=== PATIENT | female | born 1995 | race Caucasian/White ===

== ENCOUNTER 2016-11-08 20:41 | Inpatient (IN) ==
[2016-11-08] MEDS ORDERED: ONDANSETRON 4 MG/2 ML VIAL IV PRN (21:04)
[2016-11-08 21:19] LABS: Basophils % 0.2 % (0.0-0.8); Eosinophils # 0.1 10*3/uL (0.0-0.87); Eosinophils % 0.6 % (0.00-10.9); Hematocrit 35.7 VOL% (35.7-47.0); Hemoglobin 11.3 GM/DL (12.0-16.0); Immature Granulocytes Absolute 0.14 #; Mean Corpuscular HGB Conc 31.7 GM/DL (32-36); Mean Corpuscular Hemoglobin 25 PG (27-34); Mean Corpuscular Volume 78.5 FL (87-102); Mean Platelet Volume 12.5 FL (9.6-12.0); Monocytes % 6.8 % (1.7-12.7); Neutrophils # 10.1 10*3/uL (1.4-7.4); Neutrophils % 70.4 % (38.7-73.9); Platelet Count 238 10*3/uL (130-400); Red Blood Count 4.55 10*6/uL (3.8-5.5); Red Cell Distribution Width 14.5 % (9.3-17.3); White Blood Count 14.4 10*3/uL (4.5-13.71)
[2016-11-08 21:50] LABS: Alanine Aminotransferase 14 U/L (13-56); Albumin 3.2 G/DL (3.4-5.0); Alkaline Phosphatase 147 U/L (45-117); Aspartate Amino Transferase 16 U/L (0-37); Bilirubin,Total < 0.39 MG/DL (0.2-1.0); Blood Urea Nitrogen 6 MG/DL (7-18); Calcium 8.7 MG/DL (8.5-10.1); Glucose 72 MG/DL (74-106); Osmolality,Calculated 273.5 MOS/KG (273-304); Potassium 3.7 MMOL/L (3.5-5.1); Sodium 139 MMOL/L (136-145); Total Protein 7.2 G/DL (6.4-8.3)
[2016-11-09] MEDS: LACTATED RINGERS 1,000 ML IV SCH ×3 (00:01→13:55)
[2016-11-09] MEDS: MEPERIDINE 50 MG/1 ML VIAL IV PRN ×2 (05:35→08:17)
--- NOTE | 2016-11-09 06:50 | OB/GYN History & Physical ---
History of Present Illness Chief complaint: at 39 weeks admitted for elective induction History of present illness: Ms. Mcdonnell is a 21 year old female 1 para 0 at 39 weeks assessment gestational age who presents for elective induction. Estimated weight 7 lbs. 12 oz. ultrasound Vertex normal DYLAN. Cervix noted be 1/50/-3 with bag water intact. Her group B strep status is negative. She is consequently admitted for Cytotec/Pitocin induction after the risks benefits and alternatives are explained patient in detail and informed consent was obtained Home Medications Medication Instructions Recorded Confirmed Type Multivitamin () [ 1 tablet PO DAILY 11/08/16 11/08/16 History Vitamin] Allergies Allergy/AdvReac Type Severity Reaction Status Date / Time codeine Allergy Severe ANAPHYLAXIS Verified 11/08/16 21:04 12 point system: reviewed and no additional remarkable complaints except as stated Medical,Surgical,& Family Hx - Medical History HEENT: History of: Eye Problem (wears contacts) Reproductive: No history of: Ectopic , Complication - Surgical History Abdominal Surgeries: Patient denies: Abdominal Surgery Reproductive Surgeries: Patient denies;: Section - Family History Family History: Reports;: Family Cancer (mgf (lymphoma)), Family Heart Disease ( mgf (x2 heart attack)), Family Hematology (cousin hemophylia) - Social History Smoking Status: Never smoker Frequency of Alcohol Use: None Type of Drug Use: None 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: Vital Signs Temp Pulse Resp BP 11/09/16 04:00 98.6 F 77 18 108/71 11/09/16 00:00 98.7 F 120 H 20 136/83 11/08/16 21:20 99.4 F 108 H 20 124/83 General appearance: normal weight, no acute distress - Head Head exam: Present: normal inspection, normocephalic, atraumatic - Eye Eye exam: Present: EOMI Pupils: Present: JAMES - Neck Neck exam: Present: normal inspection - Respiratory Respiratory exam: Present: clear to auscultation bilaterally - Breast Breasts: as per HPI Menstruation: as per HPI - Cardiovascular Cardiovascular exam: Present: regular rate and rhythm - GI/Abdominal GI/Abdominal exam: Present: normal bowel sounds - Extremities Exam Extremities exam: Present: normal inspection, normal capillary refill - Back Exam Back exam: Present: normal inspection - Neurological Exam Neurological exam: Present: alert, oriented X3 - Psychiatric Psychiatric exam: Present: normal affect, normal mood Assessment and Plan (1) with 39 completed weeks gestation Status: Acute Current Visit: Yes (2) Elective induction of labor planned Status: Acute Current Visit: Yes Results - Labs CBC & BMP: 11/08/16 21:08 11/08/16 21:08
[2016-11-09] MEDS ORDERED: OXYTOCIN/LR 20 UNIT/1,000 ML BAG IV SCH (08:30)
[2016-11-09] MEDS ORDERED: fentaNYL 2 MCG/ROPIV 0.2% EPID 150 ML EPIDURAL SCH (09:22)
[2016-11-09] MEDS ORDERED: FAMOTIDINE 20 MG/2 ML VIAL IV ONE (09:22)
[2016-11-09] MEDS ORDERED: ePHEDrine 50 MG/ML AMP IV PRN (09:22)
[2016-11-09] MEDS ORDERED: CITRIC ACID/SODIUM CITRATE 30 ML UDCUP PO ONE (09:22)
[2016-11-09] MEDS ORDERED: hydrOXYzine HCL 25 MG/1 ML VIAL IM PRN (09:22)
[2016-11-09] MEDS ORDERED: diphenhydrAMINE 50 MG/1 ML VIAL IV PRN (09:22)
[2016-11-09] MEDS ORDERED: PROMETHAZINE 25 MG/1 ML VIAL IM ONE (09:22)
[2016-11-09 11:16] LABS: Apearance,Urine CLEAR (Clear); Bacteria,Urine Occasional /HPF (Few); Bilirubin,Urine Negative (Negative); Blood, Urine Small mg/dL (Negative); Glucose,Urine (UA) Negative (Negative); Ketones,Urine Negative (Negative); Mucus,Urine Few /LPF (Occasional); Nitrite,Urine Negative (Negative); Protein,Urine Negative; RBC,Urine 20 /HPF (0-4); Squamous Epithelial Cell,Urine Occasional /HPF (0-10); Urine Color Yellow (Yellow); Urine Specific Gravity 1.014 (1.001-1.035); Urine Urobilinogen < 2.0 EU/DL (0.2-1.0); WBC,Urine 1 /HPF (0-6)
[2016-11-09] MEDS ORDERED: LIDOCAINE 1% 50 ML VIAL ONE (14:59)
[2016-11-09] MEDS ORDERED: BUTORPHANOL 1 MG/ML VIAL ONE (14:59)
[2016-11-09] MEDS ORDERED: METHYLERGONOVINE 0.2 MG/1 ML AMP ONE (15:00)
[2016-11-09] MEDS ORDERED: RHO(D) IMMUNE GLOBULIN 300 MCG SYRINGE IM ONE (15:16)
[2016-11-09] MEDS ORDERED: ONDANSETRON 4 MG/2 ML VIAL IV PRN (15:16)
[2016-11-09] MEDS ORDERED: oxyCODONE/ACETAMINOPHEN 5-325 MG TABLET PO PRN (15:16)
[2016-11-09] MEDS ORDERED: DIPH/TET/ACEL PERT BOOSTER VACCINE 0.5 ML VIAL IM ONE (15:16)
[2016-11-09] MEDS ORDERED: WITCH HAZEL PADS 100/JAR TOP PRN (15:16)
[2016-11-09] MEDS ORDERED: HYDROCORTISONE 2.5% RECTAL CREAM 30 GM TUBE TOP PRN (15:16)
[2016-11-09] MEDS ORDERED: LANOLIN 50% CREAM 0.3 OZ TUBE TOP PRN (15:16)
[2016-11-09] MEDS ORDERED: MEASLES/MUMPS/RUBELLA VACCINE 0.5 ML VIAL SUBCUT ONE (15:16)
[2016-11-09] MEDS ORDERED: OXYTOCIN/LR 20 UNIT/1,000 ML BAG IV ONE (15:16)
[2016-11-09] MEDS ORDERED: BISACODYL 10 MG SUPP RECTAL PRN (15:16)
[2016-11-09] MEDS ORDERED: BENZOCAINE 20%/MENTHOL 0.5% SPRAY 56 GM CAN TOP PRN (15:16)
[2016-11-09] MEDS ORDERED: ACETAMINOPHEN 325 MG TABLET PO PRN (15:16)
--- NOTE | 2016-11-09 15:16 | OB/GYN Progress Note ---
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 Gonzales dictating vaginal delivery And in LDR environment under sterile conditions, the patient progressed to completely dilated. She was allowed to push and under [epidural] anesthesia had a normal spontaneous vaginal delivery of a live born female infant 6 lbs. 2 oz. [Apgars 9 and 9] over a [second-degree midline episiotomy]. The infant's nose and oropharynx were bulb and DeLee suctioned, and the infant had spontaneous cry after delivery. The cord was doubly clamped and cut and the infant was handed over to the pediatric team for care. Cord blood was obtained the placenta delivered spontaneously intact and IV Pitocin was done. There were no cervical tears. Was a right periurethral tears. With 3-0 Monocryl suture in a running fashion under epidural anesthesia and the midline episiotomy was repaired with 2-0 Monocryl suture in usual fashion under epidural anesthesia. The bladder was emptied prior to delivery. Estimated blood loss was 250 mL. There were no complications. The bladder was emptied using a catheter prior to delivery. All sponge needle and instrument counts were correct 3 at the end of the delivery. 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
[2016-11-09] MEDS: oxyCODONE/ACETAMINOPHEN 5-325 MG TABLET PO PRN ×2 (19:35→23:15)
[2016-11-09] MEDS: DOCUSATE SODIUM 100 MG CAPSULE PO SCH (21:27)
[2016-11-10] MEDS: oxyCODONE/ACETAMINOPHEN 5-325 MG TABLET PO PRN ×4 (03:40→13:52)
[2016-11-10 06:12] LABS: Basophils % 0.2 % (0.0-0.8); Eosinophils # 0.1 10*3/uL (0.0-0.87); Eosinophils % 0.8 % (0.00-10.9); Hematocrit 30.1 VOL% (35.7-47.0); Hemoglobin 9.5 GM/DL (12.0-16.0); Immature Granulocytes % 0.8 %; Lymphocytes # 2.3 10*3/uL (1.4-4.0); Lymphocytes % 17.5 % (21.3-54.2); Mean Corpuscular HGB Conc 31.6 GM/DL (32-36); Mean Corpuscular Hemoglobin 24 PG (27-34); Mean Platelet Volume 12.5 FL (9.6-12.0); Monocytes % 7.8 % (1.7-12.7); Neutrophils # 9.5 10*3/uL (1.4-7.4); Neutrophils % 72.9 % (38.7-73.9); Platelet Count 146 10*3/uL (130-400); Red Blood Count 3.91 10*6/uL (3.8-5.5); Red Cell Distribution Width 14.7 % (9.3-17.3)
[2016-11-10] MEDS: IBUPROFEN 800 MG TABLET PO PRN ×3 (07:20→20:59)
--- NOTE | 2016-11-10 07:58 | OB/GYN Progress Note ---
Assessment and Plan (1) with 39 completed weeks gestation Status: Acute Current Visit: Yes (2) Elective induction of labor planned Status: Acute Current Visit: Yes CLINICAL FACULTY - PN: Subj Interval history: Patient is doing well she is eating ambulating and voiding She is afebrile and her vital signs are stable Her fundus is firm and contracted She has decreased lochia Assessment #1 day #1 doing well Plan continue present management with expected DC tomorrow Exam CLINICAL FACULTY - Constitutional Vitals: Vital Signs Temp Pulse Resp BP Pulse Ox 11/10/16 07:29 97.6 F 83 18 94/61 98 11/10/16 03:40 98.5 F 82 18 99/72 99 11/10/16 02:00 18 11/09/16 23:15 97.5 F L 68 20 97/60 99 11/09/16 19:35 98.0 F 91 H 20 111/80 99 11/09/16 18:30 98.3 F 77 20 104/73 100 Results - Labs CBC & BMP: 11/10/16 05:49 11/08/16 21:08
[2016-11-10] MEDS: DOCUSATE SODIUM 100 MG CAPSULE PO SCH ×2 (09:11→20:59)
[2016-11-10] MEDS: MULTIVITAMIN (PRENATAL) TABLET PO SCH (09:11)
[2016-11-11] MEDS: oxyCODONE/ACETAMINOPHEN 5-325 MG TABLET PO PRN (05:16)
[2016-11-11] MEDS: IBUPROFEN 800 MG TABLET PO PRN (05:16)
--- NOTE | 2016-11-11 07:17 | Discharge Summary ---
Hospital Course - Hospital Course Hospital Course: the patient did well. She had quick return of bowel bladder function. She remained afebrile and normotensive throughout her hospitalization. She is counseled discharged on day #2 on a regular diet Diagnosis - Discharge Diagnosis (1) with 39 completed weeks gestation Status: Acute (2) Elective induction of labor planned Status: Acute Specialty Discharge - Follow Up or Referrals Discharge Plan - Discharge Data Disposition: Disch To Home/Self Care Condition at Discharge: Stable Discharge Diet: regular diet Activity: resume usual activities as tolerated, other (pelvic rest) Hygiene: may shower Weight Bearing at Discharge: full weight bearing Driving: no restrictions Contact your physician if you experience:: fever over 101, Difficulty voiding, Redness or swelling, Nausea/Vomiting, Shortness of breath, Bleeding, pain uncontrolled by pain medications - Discharge Medications New Acetamin/Codeine 300-30 Tab [Tylenol/Codeine #3] 1 tablet PO Q4H PRN #10 tablet PRN Reason: Abdominal Pain Discontinued Multivitamin () [ Vitamin] 1 tablet PO DAILY - Follow Up or Referral Follow Up: Erick Gonzales MD [Physician] - 2 Weeks - Forms/Instructions Instructions: Perineal Care (DC), Vaginal Delivery (DC), Bleeding (DC) Exam - Constitutional Vitals: Period Temp Pulse Resp BP Sys/Menard Pulse Ox Last 24 Hr 97.1 F-97.9 F 79-94 18-20 94-110/61-75 98-99 DS: Provider Date of admission: 11/08/16 21:08 Primary care physician: . No PCP Attending physician on admission: Gabi Teixeira Consults: 11/08/16 21:08 Consult to Anesthesiology [CONS] Routine Consulting Provider: Reason for Anesthesiology: Epidural Consult Comment: Epidural for pain managment 11/09/16 15:16 Consult to Early Childhood [CONS] Routine Consult Early Childhood: Breast Feeding Discharging clinician: Gabi Teixeira Expected date of discharge: 11/11/16
[2016-11-11 08:08] VITALS: BP 97/68
[2016-11-11] MEDS: DOCUSATE SODIUM 100 MG CAPSULE PO SCH (09:24)
[2016-11-11] MEDS: MULTIVITAMIN (PRENATAL) TABLET PO SCH (09:25)
== END 2016-11-11 11:55 | disposition home or self-care (01) | DRG 775 ==
LOC: N.LDOUT 20:41 → N.LD 20:47 → N.OB 11-09 18:32
PROVIDERS: ADMIT Specialist; ATTEND Specialist

== ENCOUNTER 2020-02-13 11:25 | Inpatient (IN) ==
[2020-02-13] MEDS ORDERED: ONDANSETRON 4 MG/2 ML VIAL IV PRN ×2 (12:05→15:34)
[2020-02-13] MEDS ORDERED: MEPERIDINE 50 MG/1 ML VIAL IV PRN (12:05)
[2020-02-13] MEDS ORDERED: hydrOXYzine HCL 25 MG/1 ML VIAL IM PRN (12:11)
[2020-02-13] MEDS ORDERED: FAMOTIDINE 20 MG/2 ML VIAL IV ONE (12:11)
[2020-02-13] MEDS ORDERED: diphenhydrAMINE 50 MG/1 ML VIAL IV PRN ×2 (12:11)
[2020-02-13] MEDS ORDERED: PROMETHAZINE 25 MG/1 ML VIAL IM ONE (12:11)
[2020-02-13] MEDS ORDERED: NALOXONE 0.4 MG/ML VIAL IV PRN (12:11)
[2020-02-13] MEDS ORDERED: CITRIC ACID/SODIUM CITRATE 30 ML UDCUP PO ONE (12:11)
[2020-02-13] MEDS ORDERED: LACTATED RINGERS 1,000 ML IV ONE (12:11)
[2020-02-13 12:24] LABS: Basophils % 0.3 % (0.0-0.8); Eosinophils # 0.1 10*3/uL (0.0-0.87); Eosinophils % 0.8 % (0.00-10.9); Hematocrit 40.9 VOL% (35.7-47.0); Hemoglobin 13.8 GM/DL (12.0-16.0); Immature Granulocytes % 0.8 %; Immature Granulocytes Absolute 0.08 #; Lymphocytes # 2.5 10*3/uL (1.4-4.0); Lymphocytes % 26.2 % (21.3-54.2); Mean Corpuscular HGB Conc 33.7 GM/DL (32-36); Mean Corpuscular Volume 90.3 FL (87-102); Mean Platelet Volume 12.1 FL (9.6-12.0); Monocytes % 7.2 % (1.7-12.7); Neutrophils % 64.7 % (38.7-73.9); Platelet Count 181 T/CUMM (130-400); Red Blood Count 4.53 MC/CUMM (3.8-5.5); Red Cell Distribution Width 13.1 % (9.3-17.3); White Blood Count 9.6 T/CUMM (4-12)
[2020-02-13] MEDS ORDERED: fentaNYL 2 MCG/ROPIV 0.2% EPID 100 ML EPIDURAL SCH (12:30)
[2020-02-13] MEDS ORDERED: OXYTOCIN/LR 20 UNIT/1,000 ML BAG IV SCH (12:30)
[2020-02-13] MEDS ORDERED: LACTATED RINGERS 1,000 ML IV SCH (12:30)
[2020-02-13 12:42] LABS: Alanine Aminotransferase 14 U/L (13-56); Alkaline Phosphatase 133 U/L (45-117); Aspartate Amino Transferase 14 U/L (0-37); Bilirubin,Total < 0.39 MG/DL (0.2-1.0); Blood Urea Nitrogen 7 MG/DL (7-18); Calcium 9.2 MG/DL (8.5-10.1); Estimated Glom Filtration Rate 130 ML/MIN; Glucose 70 MG/DL (74-106); Osmolality,Calculated 261.4 MOS/KG (273-304); Total Protein 7.5 G/DL (6.4-8.3)
[2020-02-13] MEDS: ePHEDrine 50 MG/ML AMP IV PRN ×2 (13:26→13:36)
[2020-02-13] MEDS ORDERED: miSOPROStoL 200 MCG TABLET ONE (15:10)
[2020-02-13] MEDS ORDERED: TRANEXAMIC ACID 1,000 MG/10 ML VIAL ONE (15:10)
[2020-02-13] MEDS ORDERED: CARBOPROST TROMETHAMINE 250 MCG/ML AMP IM ONE (15:11)
[2020-02-13] MEDS ORDERED: OXYTOCIN/LR 20 UNIT/1,000 ML BAG IV ONE ×2 (15:11→15:34)
[2020-02-13] MEDS ORDERED: METHYLERGONOVINE 0.2 MG/1 ML AMP ONE (15:11)
[2020-02-13] MEDS ORDERED: WITCH HAZEL PADS 100/JAR TOP PRN (15:34)
[2020-02-13] MEDS ORDERED: HYDROCORTISONE 2.5% RECTAL CREAM 30 GM TUBE TOP PRN (15:34)
[2020-02-13] MEDS ORDERED: ACETAMINOPHEN 325 MG TABLET PO PRN (15:34)
[2020-02-13] MEDS ORDERED: MEASLES/MUMPS/RUBELLA VACCINE 0.5 ML VIAL SUBCUT ONE (15:34)
[2020-02-13] MEDS ORDERED: LANOLIN 50% CREAM 0.3 OZ TUBE TOP PRN (15:34)
[2020-02-13] MEDS ORDERED: RHO(D) IMMUNE GLOBULIN 300 MCG SYRINGE IM ONE (15:34)
[2020-02-13] MEDS ORDERED: BENZOCAINE 20%/MENTHOL 0.5% SPRAY 56 GM CAN TOP PRN (15:34)
[2020-02-13] MEDS ORDERED: DIPH/TET/ACEL PERT BOOSTER VACCINE 0.5 ML VIAL IM ONE (15:34)
[2020-02-13] MEDS ORDERED: oxyCODONE/ACETAMINOPHEN 5-325 MG TABLET PO PRN (15:34)
[2020-02-13] MEDS ORDERED: BISACODYL 10 MG SUPP RECTAL PRN (15:34)
[2020-02-13] MEDS: DOCUSATE SODIUM 100 MG CAPSULE PO SCH (21:35)
[2020-02-13] MEDS: IBUPROFEN 800 MG TABLET PO PRN (23:35)
[2020-02-14] MEDS: oxyCODONE/ACETAMINOPHEN 5-325 MG TABLET PO PRN ×4 (04:08→22:26)
[2020-02-14 05:33] LABS: Basophils % 0.4 % (0.0-0.8); Eosinophils # 0.1 10*3/uL (0.0-0.87); Eosinophils % 0.7 % (0.00-10.9); Hematocrit 35.5 VOL% (35.7-47.0); Hemoglobin 11.9 GM/DL (12.0-16.0); Immature Granulocytes % 0.5 %; Immature Granulocytes Absolute 0.06 #; Lymphocytes # 2.6 10*3/uL (1.4-4.0); Lymphocytes % 22.6 % (21.3-54.2); Mean Corpuscular HGB Conc 33.5 GM/DL (32-36); Mean Corpuscular Volume 92.9 FL (87-102); Mean Platelet Volume 12.1 FL (9.6-12.0); Monocytes % 6.3 % (1.7-12.7); Neutrophils % 69.5 % (38.7-73.9); Platelet Count 129 T/CUMM (130-400); Red Blood Count 3.82 MC/CUMM (3.8-5.5); Red Cell Distribution Width 13.2 % (9.3-17.3); White Blood Count 11.4 T/CUMM (4-12)
[2020-02-14] MEDS: IBUPROFEN 800 MG TABLET PO PRN ×2 (08:05→16:39)
[2020-02-14] MEDS: DOCUSATE SODIUM 100 MG CAPSULE PO SCH ×2 (09:51→21:15)
[2020-02-15] MEDS: IBUPROFEN 800 MG TABLET PO PRN (04:06)
[2020-02-15] MEDS: oxyCODONE/ACETAMINOPHEN 5-325 MG TABLET PO PRN (06:21)
[2020-02-15 07:35] VITALS: BP 91/57
[2020-02-15] MEDS: DOCUSATE SODIUM 100 MG CAPSULE PO SCH (08:32)
== END 2020-02-15 11:35 | disposition home or self-care (01) | DRG 807 ==
LOC: N.LDOUT 11:25 → N.LD 11:35 → N.OB 20:25
PROVIDERS: ADMIT Specialist; ATTEND Specialist